=== PATIENT | male | born 1965 | race Caucasian/White ===

== ENCOUNTER 2017-07-05 12:48 | Emergency (ER) | payer BC ==
[~2017-07-05] VITALS: Ht 167.6 cm; Wt 99.8 kg
[~2017-07-05 12:48] MED LIST: ABILIFY10 MG PO; ASPIRIN EC81 M1 PO; BLOOD PRESSURE MED; CARISOPRODOL 3350 MG PO; CELEXA; CHOLESTEROL MED; FLEXERIL PO; HEART BURN; IBUPROFEN 800800 M1 PO; NICOTINE TRANSDE7 MG TRANSDERM; NORCO 5-325 TA1 EACH PO; PRILOSEC; PRILOSEC 20 MG20 MG PO; SIMVASTATIN40 MG PO; TESTOSTERONE; WELLBUTRIN XL150 M1 PO; ZESTORETIC 20-1 EAC3 PO
[2017-07-05 12:55] VITALS: BP 185/104
[2017-07-05] MEDS ORDERED: BACTRIM DS TAB1 EACH PO (13:01)
[2017-07-05] MEDS ORDERED: KEFLEX500 M1 PO (13:01)
== END 2017-07-05 13:10 | disposition home or self-care (01) ==
LOC: M.ERS 12:48
DX: L03.114 Cellulitis of left upper limb (principal); K21.9 Gastro-esophageal reflux disease without esophagitis; F32.9 Major depressive disorder, single episode, unspecified; I10 Essential (primary) hypertension; F17.210 Nicotine dependence, cigarettes, uncomplicated; Z88.0 Allergy status to penicillin; X58.XXXA Exposure to other specified factors, initial encounter; Y93.89 Activity, other specified; Y92.89 Other specified places as the place of occurrence of the external cause; Y99.8 Other external cause status

== ENCOUNTER 2019-10-18 00:12 | Emergency (ER) | payer OTHER ==
[~2019-10-18] VITALS: Ht 167.6 cm; Wt 97.5 kg
--- NOTE | ~2019-10-18 | PROC ---
[address] [address] PROCEDURE REPORT Name: GLENIS TELLEZ Room: [facility] Mendez#: [id number] Admission: 10/18/19 Attend Phys: Discharge: 10/18/19 Date of : 67 Report #: [id number] THIS REPORT FOR: //name// cc: FAM - No family physician/PCP FAM - No family physician/PCP ~ THIS REPORT FOR: //name// For GI report, please see the Provation report in Perceptive 7 content. By: 1210Medical Records Staff [facility] /HA
[~2019-10-18 00:12] MED LIST changes: +BACTRIM DS TAB1 EACH PO; +KEFLEX500 M1 PO
[2019-10-18] MEDS ORDERED: NORVASC 2.5 MG2.5 M1 PO (00:22)
[2019-10-18] MEDS ORDERED: LIPITOR40 MG PO (00:23)
[2019-10-18] MEDS ORDERED: ESCITALOPRA5 MG/5 ML PO (00:23)
[2019-10-18 00:34] LABS: ABSOLUTE BASOPHILS 0.1 thou/uL (0.0-0.2); ABSOLUTE EOSINOPHILS 0.2 thou/uL (0.0-0.7); ABSOLUTE LYMPHOCYTES 3.6 thou/uL (0.8-5.3); ABSOLUTE MONOCYTES 0.9 thou/uL (0.0-1.2); ABSOLUTE NEUTROPHILS 7.5 thou/uL (1.6-8.1); BASOPHILS 0.6 %; EOSINOPHILS 1.6 %; HEMATOCRIT 45.8 % (42.0-52.0); LYMPHOCYTES 29.2 %; MCH 32.5 pg (26.0-34.0); MONOCYTES 7.3 %; MPV 7.9 fl. (7.2-11.1); NUCLEATED RBCS 0 /100WBC; PLATELET COUNT* 296 thou/uL (150-400); POLYS 61.3 %; RBC 4.92 mil/uL (4.50-6.00); RDW-CV 14.4 % (10.5-14.5); WBC 12.3 thou/uL (4.0-11.0)
[2019-10-18 00:44] LABS: CALCIUM 8.4 mg/dL (8.5-10.1); CREATININE 1.2 mg/dL (0.6-1.3); POTASSIUM 3.7 mmol/L (3.5-5.1)
[2019-10-18 00:46] VITALS: BP 193/106
--- NOTE | 2019-10-18 10:25 | EKG ---
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
--- NOTE | 2019-10-19 15:08 | PATH ---
[address] [address] PATHOLOGY RPT PROCEDURE Name: GLENIS TELLEZ [facility] Room: [facility] Mendez#: [id number] Admission: 10/18/19 Date of : 67 Discharge: 10/18/19 Report #: [id number] Path Case #: [id number] [facility] Accession Number: [id number] . 01 Material submitted: . esophagus - ESOPHAGEAL BIOPSY R/O EOE . 01 Clinical history: . Food stuck in esophagus . 02 Diagnosis: Esophageal biopsy: - Severe chronic esophagitis, without significant eosinophilia, compatible with reflux. See comment. (AGGIE:pit 10/19/2019) QTP 10/19/2019 1236 Local . 02 Comment: The biopsy reveals esophageal mucosa with an abundance of intraepithelial lymphocytes and eosinophils are very difficult to find and therefore eosinophilic (allergic) esophagitis is unlikely. (AGGIE:pit 10/19/2019) . 02 Electronically signed: . Fabian Solis MD, Pathologist NPI- [id number] . 01 Gross description: . The specimen is received in formalin, labeled "Glenis Tellez, esophageal biopsy rule out eosinophilic esophagitis" and consists of multiple fragments of white-gonzalez tissue measuring 0.8 x 0.2 x 0.2 cm in aggregate which are entirely submitted in A1. (F; 10/18/2019) JFQ/JFQ 10/18/2019 2100 Local . 02 Pathologist provided ICD-10: K20.9 . 02 CPT . 670466 Specimen Comment: A courtesy copy of this report has been sent to [phone] Specimen Comment: [phone] Specimen Comment: Report sent to DR VIERA / DR MARINA Performed at: [address] [id number] MD Natan Seaman MD Phone: [phone] [place] [address] PATHOLOGY RPT PROCEDURE Name: GLENIS TELLEZ Room: [facility] Mendez#: [id number] Admission: 10/18/19 Date of : 67 Discharge: 10/18/19 Report #: [id number] Path Case #: [id number] Performed at: [address] [place], [place] [id number] MD Fabian Solis MD Phone: [phone]
--- NOTE | 2019-11-04 08:28 | CON ---
[address] [address] CONSULTATION Name: GLENIS TELLEZ [id number] Admission: 10/18/19 Attend Phys: Discharge: 10/18/19 Date of : 67 Report #: [id number] THIS REPORT FOR: //name// cc: BLU - No family physician/PCP [facility] - No family physician/PCP ~ THIS REPORT FOR: //name// CC: [facility] physician/PCP Radha [place] DATE OF SERVICE: 10/18/2019 HISTORY OF PRESENT ILLNESS: This is a pleasant 54-year-old gentleman with past medical history significant for prediabetes, obstructive sleep apnea, and hypertension, who was presenting for food bolus impaction. The patient had something to eat last night. He has not been able to clear it since that time. He reports intermittent episodes of dysphagia for several years. They have been progressive. No hematemesis, hematochezia, weight loss, or alarming symptoms. PAST MEDICAL HISTORY: Obstructive sleep apnea, prediabetes, and hypertension. PAST SURGICAL HISTORY: None. SOCIAL HISTORY: The patient smokes about half pack per day. Denies any significant alcohol or recreational drug use. FAMILY HISTORY: Significant for stroke. No history of esophageal, gastric, or colonic cancer. REVIEW OF SYSTEMS: A comprehensive 10-point review of systems is negative except for what was mentioned in the HPI. PHYSICAL EXAMINATION: GENERAL: The patient is alert, awake, and oriented x 3. HEENT: Pupils are equal, round, and reactive to light and accommodation. Mucous membranes are moist. There is no congestion. LUNGS: Clear to auscultation bilaterally. CARDIOVASCULAR: Rate and rhythm regular, S1, S2 present. ABDOMEN: Soft. There is no distention, guarding, or rigidity. EXTREMITIES: Warm and well perfused. There is no edema. SKIN: Warm and dry. ASSESSMENT AND PLAN: A pleasant 54-year-old male [place] [address] CONSULTATION Name: GLENIS TELLEZ Room: [facility]#: [id number] Admission: 10/18/19 Attend Phys: Discharge: 10/18/19 Date of : 67 Report #: [id number] impaction. We will proceed with EGD and make further recommendations based on results of EGD. <ELECTRONICALLY SIGNED> By: Oscar Nunez MD 11/04/19 0828 1036 [id number] Nunez MD /nt
== END 2019-10-18 08:07 | disposition still patient (30) ==
LOC: M.ERS 00:12
PROVIDERS: Emergency Medicine
DX: T18.128A Food in esophagus causing other injury, initial encounter (principal); E78.00 Pure hypercholesterolemia, unspecified; K21.9 Gastro-esophageal reflux disease without esophagitis; Z88.0 Allergy status to penicillin; Z79.899 Other long term (current) drug therapy; Y92.89 Other specified places as the place of occurrence of the external cause

== ENCOUNTER 2019-12-03 04:59 | Emergency (ER) | payer OTHER ==
[~2019-12-03] VITALS: Ht 167.6 cm; Wt 97.5 kg
[~2019-12-03 04:59] MED LIST changes: +ESCITALOPRA5 MG/5 ML PO; +LIPITOR40 MG PO; +NORVASC 2.5 MG2.5 M1 PO
[2019-12-03 05:34] LABS: ABSOLUTE BASOPHILS 0.1 thou/uL (0.0-0.2); ABSOLUTE EOSINOPHILS 0.2 thou/uL (0.0-0.7); ABSOLUTE LYMPHOCYTES 2.7 thou/uL (0.8-5.3); ABSOLUTE MONOCYTES 0.6 thou/uL (0.0-1.2); ABSOLUTE NEUTROPHILS 7.8 thou/uL (1.6-8.1); BASOPHILS 0.9 %; EOSINOPHILS 1.8 %; HEMATOCRIT 43.4 % (42.0-52.0); HEMOGLOBIN 15.3 gm/dL (14.0-18.0); MCH 33.1 pg (26.0-34.0); MCHC 35.2 g/dL (28.0-37.0); MCV 93.8 fL (80.0-100.0); MONOCYTES 4.8 %; MPV 8.5 fl. (7.2-11.1); NUCLEATED RBCS 0 /100WBC; PLATELET COUNT* 299 thou/uL (150-400); POLYS 68.5 %; RBC 4.62 mil/uL (4.50-6.00); RDW-CV 14.8 % (10.5-14.5); WBC 11.4 thou/uL (4.0-11.0)
[2019-12-03 05:42] LABS: CALCIUM 8.4 mg/dL (8.5-10.1); CREATININE 1.4 mg/dL (0.6-1.3); POTASSIUM 3.8 mmol/L (3.5-5.1)
[2019-12-03 05:42] LABS: URINE BILIRUBIN NEGATIVE (Negative); URINE BLOOD 3+ (Negative); URINE CLARITY CLEAR; URINE COLOR YELLOW; URINE GLUCOSE-RANDOM NEGATIVE (Negative); URINE KETONES NEGATIVE (Negative); URINE LEUKOCYTES-REFLEX NEGATIVE (Negative); URINE NITRITE-REFLEX NEGATIVE (Negative); URINE PROTEIN 1+ (Negative); URINE SPECIFIC GRAVITY >= 1.030 (1.005-1.030); URINE UROBILINOGEN 0.2 E.U./dl (0.2-1.0)
[2019-12-03 05:53] LABS: CASTS None Seen /LPF (None Seen); CRYSTALS None Seen /LPF (None Seen); MUCUS 0-3 Light strn/LPF (None Seen); SQUAMOUS 0-3 Few /LPF (0-3); URINE WBC-REFLEX 0-5 Rare /HPF (0-5)
[2019-12-03 13:06] VITALS: BP 160/83
== END 2019-12-03 13:10 | disposition short-term general hospital (02) ==
LOC: M.ERS 04:59
PROVIDERS: Emergency Medicine
DX: N20.1 Calculus of ureter (principal); N28.1 Cyst of kidney, acquired; Z20.828 Contact with and (suspected) exposure to other viral communicable diseases

== ENCOUNTER 2021-02-10 17:30 | Emergency (ER) | payer OTHER ==
[~2021-02-10] VITALS: Ht 167.6 cm; Wt 104.3 kg
[2021-02-10] MEDS ORDERED: VITAMIN D210 MCG PO (17:41)
[2021-02-10] MEDS ORDERED: LISINOPRIL-HCT1 EACH PO (17:41)
[2021-02-10] MEDS ORDERED: OMEPRAZOLE20 M2 PO (17:41)
[2021-02-10 18:14] LABS: ABSOLUTE EOSINOPHILS 0.2 thou/uL (0.0-0.7); ABSOLUTE LYMPHOCYTES 2.8 thou/uL (0.8-5.3); ABSOLUTE MONOCYTES 0.7 thou/uL (0.0-1.2); ABSOLUTE NEUTROPHILS 7.9 thou/uL (1.6-8.1); BASOPHILS 0.2 %; HEMATOCRIT 41.6 % (42.0-52.0); HEMOGLOBIN 14.6 gm/dL (14.0-18.0); LYMPHOCYTES 24.3 %; MCH 32.9 pg (26.0-34.0); MCHC 35.1 g/dL (28.0-37.0); MCV 93.6 fL (80.0-100.0); MONOCYTES 5.7 %; MPV 8.7 fl. (7.2-11.1); NUCLEATED RBCS 0 /100WBC; PLATELET COUNT* 326 thou/uL (150-400); POLYS 67.8 %; RBC 4.45 mil/uL (4.50-6.00); WBC 11.7 thou/uL (4.0-11.0)
[2021-02-10 18:19] LABS: CALCIUM 8.1 mg/dL (8.5-10.1); CREATININE 1.4 mg/dL (0.6-1.3); POTASSIUM 3.7 mmol/L (3.5-5.1)
[2021-02-10 18:29] LABS: ALBUMIN 3.5 g/dL (3.4-5.0); TOTAL BILIRUBIN 0.3 mg/dL (<0.1-1.0); TOTAL PROTEIN 7.4 g/dL (6.4-8.2)
[2021-02-10 18:31] LABS: URINE BILIRUBIN NEGATIVE (Negative); URINE BLOOD NEGATIVE (Negative); URINE CLARITY CLEAR; URINE COLOR YELLOW; URINE GLUCOSE-RANDOM NEGATIVE (Negative); URINE KETONES NEGATIVE (Negative); URINE LEUKOCYTES-REFLEX NEGATIVE (Negative); URINE NITRITE-REFLEX NEGATIVE (Negative); URINE PROTEIN NEGATIVE (Negative); URINE SPECIFIC GRAVITY >= 1.030 (1.005-1.030)
[2021-02-10 20:50] VITALS: BP 122/82
--- NOTE | 2021-02-11 11:13 | EKG ---
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
== END 2021-02-10 20:51 | disposition home or self-care (01) ==
LOC: M.ERS 17:30
PROVIDERS: Nurse Practitioner Family
DX: I10 Essential (primary) hypertension (principal); R06.00 Dyspnea, unspecified; R42 Dizziness and giddiness; E78.00 Pure hypercholesterolemia, unspecified; K21.9 Gastro-esophageal reflux disease without esophagitis; F32.9 Major depressive disorder, single episode, unspecified; F17.210 Nicotine dependence, cigarettes, uncomplicated; Z79.899 Other long term (current) drug therapy; Z88.0 Allergy status to penicillin